=== PATIENT | female | born 1950 | race Caucasian/White ===

== ENCOUNTER → 2016-08-25 | Outpatient (CLI) | payer OTHER ==
[~2016-08-25] MED LIST: COLACE100 MG PO; CYMBALTA30 MG PO; DILAUDID 2MG(HYD2 MG PO; KLONOPIN1 MG PO; MIRALAX17 GM PO; NEURONTIN300 MG PO; PROTONIX40 MG PO; TYLENOL EXTRA500 MG PO; ULTRAM50 MG PO; VALIUM5 MG PO; VITAMIN D250000 UNIT PO; XARELTO10 MG PO; ZANTAC150 MG PO; ZOFRAN8 MG PO
== END | disposition disaster alternative care site (69) ==
LOC: GRAD 12:46
DX: R10.31 Right lower quadrant pain (principal); Q61.02 Congenital multiple renal cysts; R11.0 Nausea; R50.9 Fever, unspecified; Z90.710 Acquired absence of both cervix and uterus
CPT/HCPCS: Q9967

== ENCOUNTER 2016-09-06 22:20 | Emergency (ER) | payer OTHER ==
--- NOTE | ~2016-09-06 | ER ---
PATIENT'S NAME: SARAH ALEGRIA [facility] AGE: 66 Y [address] ROOM: [place] [address] LOCATION: [facility] ADMIT DATE: 09/06/2016 ER/Outpatient Report DISCHARGE DATE: 09/07/2016 FAMILY PHYSICIAN: Rudy Godfrey MD ATTENDING PHYSICIAN: Michael Jacob Time of Arrival: Admission date and time documented on the medical record. Time of Evaluation: I saw the patient at 2240 hours. CHIEF COMPLAINT: Right shoulder pain. HISTORY OF PRESENT ILLNESS: This patient is a 66-year-old female, who comes in with severe right shoulder pain that started around 1400 hours this afternoon. This morning, she had an esophagogastroduodenoscopy at 0800 hours. She does not recall any type of injury during that procedure. They did not mention anything about having to position her arm in an unusual position or fashion. No fall or trauma. The patient has been having some health issues over the past 3 weeks. She has lost 10 pounds. She has nightly low-grade fever. She does have a history of chronic pain problems. She was on prednisone for 3 years and has been off it for the past 2 weeks. No chills or sweats. No chest pain or shortness of breath. No jaw pain, neck pain, back pain, or spine pain. HOME MEDICATIONS: See attached medication list. ALLERGIES: NONE. SOCIAL HISTORY: Nonsmoker, nondrinker. SIGNIFICANT PAST MEDICAL HISTORY: Chronic pain and dyslipidemia. OPERATIONS: Back surgery and inguinal herniorrhaphy. REVIEW OF SYSTEMS: All systems reviewed by me are negative with the exception of those discussed in the history of present illness. PHYSICAL EXAMINATION: VITAL SIGNS: Temperature 99.6, tympanic; pulse 87; blood pressure 140/65; and PATIENT'S NAME: SARAH ALEGRIA [facility] AGE: 66 Y [address] ROOM: [place], [place] [address] LOCATION: [facility] ADMIT DATE: 09/06/2016 ER/Outpatient Report DISCHARGE DATE: 09/07/2016 FAMILY PHYSICIAN: Rudy Godfrey MD ATTENDING PHYSICIAN: Michael Jacob O2 saturation on room air is 96%. EXTREMITIES: On examination of the right shoulder, she has tenderness over the anterior shoulder bicipital groove. No tenderness over the deltoid, triceps or biceps. Elbow moves freely. Forearm supinates and pronates without problems. Fingers, hand, wrist move without problem. Neurovascularly intact. Pulse intact. Strength is intact. The patient has decreased range of motion as far as flexion, extension, abduction, and rotation. No swelling. No redness. Not hot to the touch. IMAGING DATA: X-ray of the right shoulder showed no fracture, dislocation, or separation. Chest x-ray showed no acute infiltrate or changes. We will review all plain films with the radiologist. EKG showed sinus rhythm. No acute ST elevation, ischemic change, or arrhythmia. LABORATORY DATA: White count is 10,000, 66 segs, 24 lymphs, 7 monos, 2 eos, 1 baso; hemoglobin is 13.5; hematocrit 40.0; platelet count is 275,000. Sedimentation rate was 30. PTT was 29, pro-time is 11 with an INR of 1.05. Uric acid normal at 4.9. CMS was normal except for an elevated glucose of 105, CPK was 25. Point-of- care cardiac enzymes were normal. CRP was 3.5. EMERGENCY DEPARTMENT COURSE: Did give the patient oral [place] 10 mg without improvement in 1 hour, went ahead at that time with Toradol 60 mg IM, Valium 10 mg IM in the emergency room, IV Dilaudid 1 mg, IV Solu-Medrol 125 mg. She had fairly good improvement in her pain with this combination. IMPRESSION: Right shoulder pain, etiology uncertain. I think this is more like an acute severe tendinitis. PLAN: The patient dismissed home. Placed the patient in a right shoulder mobilizer. Ice, heat or combination to sore areas intermittently as needed. Toradol 10 mg 1 every 6 hours x12 doses. Medrol Dosepak take as directed. Flexeril 10 mg 3 times a day, #30. Percocet as needed for pain. Follow up with personal physician in 2 days. MICHAEL JACOB MD SDS/modl PATIENT'S NAME: SARAH ALEGRIA [facility] AGE: 66 Y [address] ROOM: [place], [place] [address] LOCATION: [facility] ADMIT DATE: 09/06/2016 ER/Outpatient Report DISCHARGE DATE: 09/07/2016 FAMILY PHYSICIAN: Rudy Godfrey MD ATTENDING PHYSICIAN: Michael Jacob /[id number] d: 09/07/16605 t: 09/07/16 1809, OUTPATIENT REPORT
--- NOTE | ~2016-09-06 | ENPV ---
Vascular Upper Extremities Veins Procedure Demographics Patient Name SARAH ALEGRIA Date of Study 09/06/2016 Patient Number [id number] Gender Female Date of 1950 Age 66 Visit Number [id number] Height Accession Number [id number] Weight Room Number BSA BMI Referring Cecil Domínguez MD Physician Bekah Grant Physician Physician Ordering Physician Cecil Lujan MD Sales Receptionist Bit Sharpener Juice Ervin T Conclusions Summary Normal right upper extremity venous duplex. Procedure Type of Study: Veins:Upper Extremities Veins, Upper Extremity Right. Additional Indications:right shoulder pain Appropriate Use Criteria:9 Patient Status:STAT. Study Location:ER. Technical Quality:Adequate visualization. Velocities are measured in cm/s ; Diameters are measured in cm Right UE Vein Measurements 2D and Doppler Measurements + + + + +--------+--------+ !Location !Visualized !Compressibility !Thrombosis !Signal !Reflux ! + + + + +--------+--------+ !IJV !Yes !Yes !None !Phasic !No ! + + + + +--------+--------+ !SCV !Yes !Yes !None !Phasic !No ! + + + + +--------+--------+ !Innominate !Yes !Yes !None !Phasic !No ! + + + + +--------+--------+ !Axillary !Yes !Yes !None !Phasic !No ! + + + + +--------+--------+ !Brachial !Yes !Yes !None !Phasic !No ! + + + + +--------+--------+ !Radial !Yes !Yes !None !Phasic !No ! + + + + +--------+--------+ !Ulnar !Yes !Yes !None !Phasic !No ! + + + + +--------+--------+ !Basilic !Yes !Yes !None !Phasic !No ! + + + + +--------+--------+ !Cephalic !Yes !Yes !None !Phasic !No ! + + + + +--------+--------+ Left UE Vein Measurements 2D and Doppler Measurements + + + + +--------+ + !Location !Visualized !Compressibility !Thrombosis !Signal !Reflux ! + + + + +--------+ + !IJV !Yes !Yes !None ! ! ! + + + + +--------+ + Signature dtt: CLARK CALZADA: 09/06/16 2318 Physician Self Edit
[~2016-09-06 22:20] MED LIST changes: -COLACE100 MG PO; -CYMBALTA30 MG PO; -DILAUDID 2MG(HYD2 MG PO; -MIRALAX17 GM PO; -TYLENOL EXTRA500 MG PO; -ULTRAM50 MG PO; -VALIUM5 MG PO; -VITAMIN D250000 UNIT PO; -XARELTO10 MG PO; -ZOFRAN8 MG PO
[2016-09-06 23:04] LABS: BASOPHIL # 0.1 K/uL (0.0-0.2); BASOPHIL % 0.9 %; EOSINOPHIL # 0.2 K/uL (0.0-0.5); EOSINOPHIL % 2.4 %; HEMOGLOBIN 13.5 g/dL (10.0-15.0); IMMATURE GRANULOCYTE % 0.2 %; LYMPHOCYTE # 2.4 K/uL (0.8-4.0); LYMPHOCYTE % 23.6 %; MCH 31.9 pg (27.0-34.0); MCHC 33.8 gm/dL (32.0-36.5); MCV 94.6 fl (83.0-98.0); MONOCYTE # 0.7 K/uL (0.0-1.0); MONOCYTE % 6.5 %; MPV 9.1 fl (9.4-12.4); NEUTROPHIL # (ANC) 6.6 K/uL (1.8-7.8); NEUTROPHIL % 66.4 %; NRBC % 0 /100WBC (0-0.00); PLATELET COUNT 275 K/uL (150-450); RBC 4.23 M/uL (3.50-5.50); RDW-CV 12.2 % (11.9-14.6)
[2016-09-06 23:16] LABS: INR - (THERAPEUTIC) 1.05 (0.92-1.07); PTT 29 SECONDS (25-32)
[2016-09-06 23:24] LABS: ALBUMIN 3.2 gm/dL (3.5-5.0); ALK PHOS 96 IU/L (33-138); ALT 19 IU/L (12-78); ANION GAP 9.9 (10.0-19.0); AST 17 IU/L (10-40); BLOOD UREA NITROGEN 12 mg/dL (6-24); CALCIUM 8.5 mg/dL (8.5-10.5); CHLORIDE 107 mMol/L (96-110); CO2 26 mMol/L (22-32); CPK 25 IU/L (21-215); CREATININE 0.7 mg/dL (0.5-1.1); ESTIMATED GFR (MDRD EQUATION) > 60; POTASSIUM 3.9 mMol/L (3.7-5.1); SODIUM 139 mMol/L (135-145); TOTAL BILIRUBIN 0.3 mg/dL (0.0-1.5); TOTAL PROTEIN 7.6 g/dL (6.0-8.4)
== END 2016-09-07 01:20 | disposition disaster alternative care site (69) ==
LOC: GMED 22:20
PROVIDERS: Emergency Medicine
DX: M25.511 Pain in right shoulder (principal); E78.5 Hyperlipidemia, unspecified; G89.29 Other chronic pain; Z98.890 Other specified postprocedural states; Z79.899 Other long term (current) drug therapy
CPT/HCPCS: J1170; J1885; J2930; J3360

== ENCOUNTER → 2016-09-06 | Day surgery (SDC) | payer OTHER ==
[~2016-09-06] VITALS: Ht 172.7 cm; Wt 105.0 kg
== END | disposition disaster alternative care site (69) ==
LOC: GPOC 09-05 11:00 → GEND 06:57 → GPOC 07:00
PROC: 0DB98ZX Excision of Duodenum, Via Natural or Artificial Opening Endoscopic, Diagnostic (ICD-10-PCS; principal; 2016-09-06)
PROC: 0DB68ZX Excision of Stomach, Via Natural or Artificial Opening Endoscopic, Diagnostic (ICD-10-PCS; 2016-09-06)
DX: K29.50 Unspecified chronic gastritis without bleeding (principal); M17.11 Unilateral primary osteoarthritis, right knee; D47.2 Monoclonal gammopathy; G25.81 Restless legs syndrome; Z87.39 Personal history of other diseases of the musculoskeletal system and connective tissue; Z90.710 Acquired absence of both cervix and uterus; Z79.899 Other long term (current) drug therapy
CPT/HCPCS: J2001; J7030

== ENCOUNTER 2016-09-11 09:00 | Inpatient (IN) | payer OTHER, MEDICARE ==
[~2016-09-11] VITALS: Ht 172.7 cm; Wt 104.0 kg
--- NOTE | ~2016-09-11 | DS ---
PATIENT'S NAME: SARAH ALEGRIA [facility] AGE: 66 Y [address] ROOM: [place] [address] LOCATION: [facility] ADMIT DATE: 09/18/2016 Discharge Summary DISCHARGE DATE: 09/21/2016 FAMILY PHYSICIAN: Rudy Godfrey MD ATTENDING PHYSICIAN: Joselyn Mullins PRIMARY DIAGNOSIS: Degenerative joint disease of the right knee. SECONDARY DIAGNOSES: Include: 1. Dyslipidemia. 2. History of gastritis. PROCEDURE PERFORMED: Right total knee arthroplasty with computer navigation. HISTORY: The patient is a 66-year-old female, who presents with advanced right knee degenerative joint disease and associated severely compromised activities of daily living. The patient has decided to proceed with total knee arthroplasty after having been thoroughly counseled regarding the risks, benefits, limitations and alternatives. Please refer to the outpatient clinic notes and admission history and physical for this patient. HOSPITAL COURSE: The patient underwent a right total knee arthroplasty on 09/18/2016 without complications. Spinal anesthesia plus adductor canal block plus periarticular local anesthesia was utilized. The patient received 24 hours of perioperative prophylactic antibiotics and remained hemodynamically stable, neurovascularly intact throughout the entire hospital course. The postoperative prophylactic deep venous thrombosis prophylaxis consisted of Xarelto 10 mg, early mobilization and pneumatic compression devices. Daily physical therapy for gait training, transfer training range of motion and quadriceps isometric exercises were received. The patient progressed well in physical therapy. On the date of discharge, 09/21/2016, the incision at the knee was healing well and showed no signs of infection. DISPOSITION: Home. DISCHARGE ACTIVITY: The patient is to bear weight as tolerated with range of motion and quadriceps isometric exercises as instructed. The operative extremity is to be elevated at least 90% of the day. There is to be sterile 4x4 gauze dressings to the incision daily. Dr. Mullins is to be notified immediately if there is any increased pain, fevers, chills erythema, or drainage. DISCHARGE MEDICATIONS: Include: 1. Xarelto 10 mg take 1 tablet p.o. daily for DVT prevention. 2. Valium 5 mg, take 1/2 tablet to 1 tablet every 6 hours as needed for PATIENT'S NAME: SARAH ALEGRIA [facility] AGE: 66 Y [address] ROOM: [place] [address] LOCATION: [facility] ADMIT DATE: 09/18/2016 Discharge Summary DISCHARGE DATE: 09/21/2016 FAMILY PHYSICIAN: Rudy Godfrey MD ATTENDING PHYSICIAN: Joselyn Mullins muscle spasms. 3. Dilaudid 2 mg, take 1 to 2 tablets p.o. every 4 hours as needed for pain. FOLLOWUP: Follow up appointment is to be with Dr. Mullins on 09/25/2016 for initial postoperative evaluation with x-rays at that time and for staple removal. SOFÍA MENDEZ FOR JOSELYN MULLINS MD TLB/modl /[id number] d: 10/03/16 0120 t: 10/09/16 0951, DISCHARGE SUMMARY
--- NOTE | ~2016-09-11 | OR ---
PATIENT'S NAME: CURTIS ALEGRIAH Ulisses [facility] AGE: 66 Y [address] ROOM: [place] [address] LOCATION: [facility] ADMIT DATE: 09/18/2016 OR/Procedure Report DISCHARGE DATE: FAMILY PHYSICIAN: DOTTIE ROSALES MD ATTENDING PHYSICIAN: JOSELYN MULLINS SURGEON: Joselyn Mullins MD INTEGRATION LEAD: 1. SOFÍA Kimble. 2. Ronny Marr CST/GRAPHITE MILL OPERATOR. DATE OF PROCEDURE: 09/18/2016 PREOPERATIVE DIAGNOSIS: Degenerative joint disease, right knee. POSTOPERATIVE DIAGNOSIS: Degenerative joint disease, right knee. OPERATION: Right total knee arthroplasty with computer navigation. ANESTHESIA: Spinal anesthesia plus adductor canal block plus periarticular local anesthesia (ropivacaine with epinephrine and Toradol). ESTIMATED BLOOD LOSS: Less than 20 mL. DRAIN: None. SPECIMEN: None. COMPLICATIONS: None. IMPLANT SYSTEM: Cristóbal Triathlon. 1. Size 4 right posterior stabilized femoral component. 2. Size 3 universal modular tibial baseplate. 3. A 13 mm posterior stabilized size 3 X3 tibial polyethylene insert. 4. A 29 mm oval X3 patellar component. INDICATIONS FOR SURGERY: Sarah Alegria is a 66-year-old female who presents with advanced right knee degenerative joint disease and associated severely compromised activities of daily living. The patient has decided to proceed with knee replacement after having been thoroughly counseled regarding the associated risks, benefits, and limitations. We have specifically reviewed the risks and implications of infection, deep venous thrombosis, pulmonary embolism, mortality, neurovascular complications, blood transfusion (and associated potential for disease transmission or transfusion reaction), stiffness, instability, mechanical deterioration of the components (due to wear and or loosening), and the potential need for revision. We have also emphasized the importance of active involvement and compliance with post- operative physical therapy as a means of optimizing range of motion and [facility] 66 Y [address] ROOM: [place] [address] LOCATION: [facility] ADMIT DATE: 09/18/2016 OR/Procedure Report DISCHARGE DATE: FAMILY PHYSICIAN: DOTTIE ROSALES MD ATTENDING PHYSICIAN: JOSELYN MULLINS functional recovery. Informed consent has been granted. DESCRIPTION OF PROCEDURE: The patient was positioned supine after administration of anesthesia and prophylactic antibiotics. A well-padded pneumatic tourniquet was placed around the right proximal thigh, and the right lower extremity was prepped and draped with vigilant sterile technique. The patient's name as well as the intended operative side and procedure were confirmed with a verbal time-out involving myself, the circulating nurse, the scrub nurse, and the anesthesiologist. Examination under anesthesia demonstrated no active skin lesions or masses. There was a moderate effusion. There was no erythema. There was no abnormal warmth. Range of motion under anesthesia was from a 5 degree flexion contracture to 120 degrees of flexion. There was no ligamentous insufficiency. The right lower extremity was elevated and exsanguinated with an Esmarch wrap, and the pneumatic tourniquet was inflated to 300mmHg. The knee was approached through a longitudinal midline incision. A medial parapatellar arthrotomy was performed and the patella was everted. Examination of the joint space demonstrated a moderate amount of benign-appearing translucent synovial fluid. There was generalized moderate nonproliferative synovitis. There were no loose bodies. The cruciate ligaments were intact. There was a small osteophyte at the intercondylar notch. There was a 1 cm diameter region of full-thickness articular cartilage loss at the central aspect of the patella and full-thickness articular cartilage loss throughout over 50% of the medial femoral condyle. There was high-grade partial-thickness articular cartilage loss across the equator of the patella and throughout the remainder of the medial femoral condyle. There was a 1 x 2 cm region of full-thickness articular cartilage loss at the anterior aspect of the medial tibial plateau. There were moderate-sized osteophytes at the medial femoral condyle and the medial tibial plateau. There were small osteophytes at the superior and inferior margins of the patella as well as at the lateral femoral condyle and lateral femoral trochlea. There were mild grade 2 degenerative changes at the lateral femoral condyle. There was full-thickness fissuring and moderate grade 3 chondromalacia at the medial half of the lateral tibial plateau. The lateral meniscus was intact. The anterior half of the medial meniscus was truncated. There was degenerative tearing at the posterior half of the medial meniscus. Remnants of the menisci and cruciate ligaments were excised. The Avaz navigation femoral tracker was pinned in place at the distal aspect of the femoral trochlea. Absence of motion between the femur and the tracking device was confirmed manually and visually. Femoral osseous landmarks were PATIENT'S NAME: SARAH ALEGRIA [facility] AGE: 66 Y [address] ROOM: [id number] [place], [place] [address] LOCATION: [facility] ADMIT DATE: 09/18/2016 OR/Procedure Report DISCHARGE DATE: FAMILY PHYSICIAN: DOTTIE ROSALES MD ATTENDING PHYSICIAN: JOSELYN MULLINS in order to calibrate the computer navigation system. Landmarks included the center of rotation of the ipsilateral hip, the center-point of the distal femur, the femoral AP axis, 57 points on the medial femoral condyle articular surface, and 57 points on the lateral femoral condyle articular surface. The Jiahe computer navigation system was subsequently utilized to position the distal femoral resection block such that the distal femoral resection was performed perfectly perpendicular to the femoral mechanical axis. The distal femoral resection was performed with a [employer] oscillating saw. The Jiahe computer navigation tibial tracker was pinned in place at the anterior aspect of the tibial plateau. Absence of motion between the tibia and the tracking device was confirmed manually and visually. Tibial osseous landmarks were obtained in order to calibrate the computer navigation system. Landmarks included the center-point of the tibial plateau, the AP tibial axis, 57 points on the medial tibial plateau articular surface, 57 points on the lateral tibial plateau articular surface, the medial malleolus, and the lateral malleolus. The Jiahe computer navigation system was subsequently utilized to position the proximal tibial resection block such that the proximal tibial resection was performed perfectly perpendicular to the tibial mechanical axis. The proximal tibial resection was performed with a [employer] oscillating saw. Perpendicularity of the tibial resection with respect to the tibial shaft axis was reconfirmed by inserting a spacer- block attached to an extramedullary guide ricardo. External rotation of the anterior and posterior femoral resections was set parallel to the epicondylar axis and carefully adjusted in order to create a rectangular flexion gap. The box resection was performed with a reciprocating saw. Anterior and posterior chamfer resections were performed with the oscillating saw. Posterior condyle osteophytes were excised with an osteotome. All other osteophytes were excised with a rongeur. Resection of all remnants of the menisci was reconfirmed. Flexion and extension gaps were confirmed to be symmetric and well balanced with a spacer-block technique. The patella resection was performed with an oscillating saw such that the composite thickness of the reconstructed patella was equivalent to the thickness of the otoe-missouria patella. Patella tracking was confirmed to be optimal. A limited lateral retinacular release was required in order to optimize patellar tracking. All trial components were removed and all prepared osseous surfaces were thoroughly irrigated with pulsatile saline lavage and dried prior to cementing all three components in a single stage using Cristóbal Simplex cement containing pre-mixed tobramycin. All extruded excess cement was removed. The entire joint space was thoroughly inspected and thoroughly irrigated with PATIENT'S NAME: SARAH ALEGRIA [facility] AGE: 66 Y [address] ROOM: [address] [address] LOCATION: [facility] ADMIT DATE: 09/18/2016 OR/Procedure Report DISCHARGE DATE: FAMILY PHYSICIAN: DOTTIE ROSALES MD ATTENDING PHYSICIAN: JOSELYN MULLINS bacteriostatic pulsatile saline lavage to assure that there was no residual debris of any sort. Final range of motion was from full extension (with no passive hyperextension) to 130 degrees of flexion. Patella tracking was reconfirmed to be optimal. There was excellent anteroposterior stability at 90 degrees of flexion. There was less than 1 mm of medial lift-off to valgus stress in full extension. There was less than 1 mm of lateral lift-off to varus stress in full extension. The arthrotomy was closed with multiple simple and [id number] interrupted #1 Vicryl. Subcutaneous tissues were thoroughly re-irrigated with bacteriostatic pulsatile saline lavage. Subcutaneous tissues were re- approximated with simple buried interrupted #0 Vicryl sutures. The skin was closed with simple buried interrupted 2-0 Vicryl sutures followed by surgical teodoro. The dressing consisted of Xeroform gauze, 4x4 gauze, ABD pads and two 6-inch Kashif Wraps. There were no intra-operative complications. It should be noted that the physician's geological survey field assistant played an active, integral role throughout this entire operation. By providing expert retraction, they greatly facilitated and expedited safe and effective exposure of the distal femur, proximal tibia and patella for preparation and implantation of the components. They were also actively involved in the patient's positioning, prepping and draping, as well as wound closure. MD JUANITA CIFUENTES/gertrudis /[id number] d: 09/18/16 1221 t: 09/27/16 1744, OPERATIVE SUMMARY
--- NOTE | 2016-09-18 11:11 | NUR ---
Pt is alert/disorientated to time. Affect flat,follows commands at times. Pt has hx of dementia. VSS, denies pain. Percocet 1 tab 0514 today. Dsgs to L hip dry/intact. CSM is adequate. Pt is total lift, due to not comprehending TTWB status. Incontinent of urine at times, last BM 09/18. Pt eats well. Report called to [facility] [phone].
[2016-09-18] MEDS ORDERED: CYMBALTA30 MG PO (15:46)
[2016-09-18] MEDS ORDERED: ZOFRAN8 MG PO (15:47)
[2016-09-18] MEDS ORDERED: VITAMIN D250000 UNIT PO (15:48)
[2016-09-18] MEDS ORDERED: ULTRAM50 MG PO (15:49)
--- NOTE | 2016-09-18 16:36 | NUR ---
Met with patient and in room. They had attended the preop joint class. Deny questions. Reports has DME available. Plans to return home to one level home with walk in shower. No needs anticipated at this time. Reviewed and encouraged use of IS and moving feet up and down. Understanding verbalized.
--- NOTE | 2016-09-18 17:53 | NUR ---
Significant Event:VSS, Rates pain 2-4/10, scheduled Tylenol and Dilaudid 2mg po at 1730. Dsg to R knee CDI,CSM adequate, denies n/t. Transfers with SBA 1/GB/Walker to chair, BSC. Voids in large 300ml amounts, ate noon meal without nausea. Uses IS 1000ml/hr.IVSL R wrist. Follow up:Monitor
--- NOTE | 2016-09-19 04:20 | NUR ---
Significant Event:pt alert and orientedx4. pleasan with staff and cares. up with 1 assist to bedside commode. rest in chair during evening. minimal pain noted during night. valium given x2 last dose at 0420, dilaudid 2mg given 2x last at 0128. dressing to right knee clean dry intact. csm wnl. ice to knee. voiding with no complications noted. uses call light approp. bilat foot pumps in place. saline locked at 1930, eating and drinking with no complications. Follow up:
--- NOTE | 2016-09-19 09:40 | NUR ---
Introduced self/role to patient and her family. She denied any barriers to going home or at home. Will need to get a different walker but knows where to get one. Added my name to her marker board, will continue to follow.
--- NOTE | 2016-09-19 14:20 | NUR ---
(-)MST. PO INTAKE 100%; NO C/O NAUSEA. BMI: 34.8. WILL ASSIST NEEDED.
--- NOTE | 2016-09-19 19:00 | NUR ---
Significant Event:VSS, rates pain 2-4/10, Dilaudid 2mg, last dose at 1730, Valium 5mg po 1845, Tylenol 1000mg po 1300. R knee dsgs are CDI, CSM is WNL. Pt tx with SBA Glenna/VERONICA/Denis. Attended [facility] class. Follow up:Monitor and plans to DC on Sunday.
--- NOTE | 2016-09-19 19:05 | NUR ---
Significant Event:VSS, rates pain 2-4/10. Dilaudid 2mg po, last dose at 1736, Valium 5mg po 1741, Tylenol 1000mg at 1300. Tx with SBA 1/GB/walker, CSM is adequate lower extremities. Dsg to R knee is CDI. Attended [facility] today Follow up:Monitor, plan DC tomorrow.
--- NOTE | 2016-09-20 05:18 | NUR ---
Significant Event: Alert and oriented. Vital signs stable. Sats at 91-94% on RA. Kashif-wrap dressing is CDI. CSM WNL. Ice bags present, leg elevated. Valium 5 mg at 2312. Dilaudid 4 mg at 0135, plan to give again thi soham. Dilaudid 0.2 mg IVP given X2 last at 2329. Ambulates with SBA, gait belt and walker. Follow up: Possible discharge home today.
[2016-09-20] MEDS ORDERED: TYLENOL EXTRA500 MG PO (11:52)
[2016-09-20] MEDS ORDERED: COLACE100 MG PO (11:53)
[2016-09-20] MEDS ORDERED: MIRALAX17 GM PO (11:55)
[2016-09-20] MEDS ORDERED: XARELTO10 MG PO (11:56)
[2016-09-20] MEDS ORDERED: DILAUDID 2MG(HYD2 MG PO (11:57)
[2016-09-20] MEDS ORDERED: VALIUM5 MG PO (11:57)
--- NOTE | 2016-09-20 17:29 | NUR ---
WAS PLANNING ON GOING HOME TODAY BUT HAS HAD LOTS OF PAIN. HAD ONE VALIUM EARLY THIS AM AND THEN DILAUDID 4MG PO TWICE THE LAST TIME AT 1524 THEN DILAUDID IV 3 TIMES THE LAST TIME AT 1717. UP WITH ONE ASSIST. WNL. DRESSING C/D/I. PLAN HOME TOMORROW.
--- NOTE | 2016-09-21 05:03 | NUR ---
Pt up w/ 1 assist GBW. Pt ambulated in halls x1. Pt received iv dilaudid x1 at beginning of shift. PO dilaudid will give again around 0520. CSM's intact. Dressing C/D/I. Plan is to go home today.
== END 2016-09-21 12:41 | disposition disaster alternative care site (69) | DRG 470 ==
LOC: G3N 09-18 05:16
PROVIDERS: ADMIT Orthopaedic Surgery
PROC: 0SRC0J9 Replacement of Right Knee Joint with Synthetic Substitute, Cemented, Open Approach (ICD-10-PCS; principal; 2016-09-18)
DX: M17.0 Bilateral primary osteoarthritis of knee (principal); D47.2 Monoclonal gammopathy; G25.81 Restless legs syndrome; R63.4 Abnormal weight loss; G47.33 Obstructive sleep apnea (adult) (pediatric); K29.70 Gastritis, unspecified, without bleeding; E66.9 Obesity, unspecified; Z68.34 Body mass index [BMI] 34.0-34.9, adult; G89.29 Other chronic pain
CPT/HCPCS: C1713; C1776; J0690; J1100; J1170; J1885; J2001; J2250; J2405; J2795; J7120

== ENCOUNTER → 2016-09-14 | Outpatient (CLI) | payer OTHER ==
[~2016-09-14] MED LIST changes: +COLACE100 MG PO; +CYMBALTA30 MG PO; +DILAUDID 2MG(HYD2 MG PO; +MIRALAX17 GM PO; +TYLENOL EXTRA500 MG PO; +ULTRAM50 MG PO; +VALIUM5 MG PO; +VITAMIN D250000 UNIT PO; +XARELTO10 MG PO; +ZOFRAN8 MG PO
== END | disposition disaster alternative care site (69) ==
LOC: GNJRC 10:44
DX: Z01.812 Encounter for preprocedural laboratory examination (principal); M17.11 Unilateral primary osteoarthritis, right knee